=== PATIENT | female | born 1960 | race Caucasian/White ===

== ENCOUNTER 2018-04-06 17:09 | Emergency (ER) | payer MEDICAID ==
--- NOTE | 2018-04-06 19:32 | ED Physician Chart ---
ED Chief Complaint/HPI - Patient Information Date Seen:: 04/06/18 Time Seen:: 19:15 Chief Complaint:: lt ear pain History of Present Illness:: 58 yr old female with lt ear pain for 2 days no fever no drainage just blood old question scratch lt ear Allergies:: Allergies Allergy/AdvReac Type Severity Reaction Status Date / Time No Known Allergies Allergy Verified 04/06/18 17:36 Vitals:: Vital Signs - 8 hr 04/06/18 04/06/18 17:30 18:33 Temp 98 F HR 82 82 RR 16 16 BP 137/89 137/89 O2 Sat % 99 99 ED Review of Systems - Review of Systems General/Constitutional: No fever, No chills, No weight loss, No weakness, No diaphoresis, No edema, No loss of appetite Skin: No skin lesions, No rash, No bruising Head: No headache, No light-headedness Eyes: No loss of vision, No pain, No diplopia ENT: Earache, No nasal drainage, No sore throat, No tinnitus Neck: No neck pain, No swelling, No thyromegaly, No stiffness, No mass noted Cardio Vascular: No chest pain, No palpitations, No PND, No orthopnea, No edema Pulmonary: No SOB, No cough, No sputum, No wheezing GI: No nausea, No vomiting, No diarrhea, No pain, No melena, No hematochezia, No constipation, No hematemesis G/U: No dysuria, No frequency, No hematuria Musculoskeletal: No bone or joint pain, No back pain, No muscle pain Endocrine: No polyuria, No polydipsia Psychiatric: No prior psych history, No depression, No anxiety, No suicidal ideation Hematopoietic: No bruising, No lymphadenopathy Allergic/Immuno: No urticaria, No angioedema Neurological: No syncope, No focal symptoms, No weakness, No paresthesia, No headache, No seizure, No dizziness, No confusion, No vertigo ED Past Medical History - Past Medical History Past Medical History: HTN Family Medical History - Family Member Father History Unknown: Yes ED Physical Exam - Physical Examination General/Constitutional: Awake, Well-developed, well-nourished, Alert, No distress, GCS 15, Non-toxic appearing, Ambulatory ENMT: TM canals nl (dry blood lt ear canal) ED Assessment - Assessment General Assessment: lt ear canal dry blood suggests scratch lt ear canal ED Septic Shock - . Is Septic Shock (SBP<90, OR Lactate>4 mmol\L) present?: No - <6hrs of presentation: Vital Signs: Vital Signs - 8 hr 04/06/18 04/06/18 17:30 18:33 Temp 98 F HR 82 82 RR 16 16 BP 137/89 137/89 O2 Sat % 99 99 ED Reassessment (Disposition) - Reassessment Reassessment Condition:: Unchanged - Aftercare/Follow up Instructions Aftercare/Follow-Up Instructions:: Counseled pt regarding lab results/diagnosis & need follow up, Refer to Discharge Instructions - Patient Disposition Discharge/Transfer:: Home
== END 2018-04-06 19:40 | disposition home or self-care (01) ==
LOC: ER 17:09
DX: H92.02 Otalgia, left ear (principal); I10 Essential (primary) hypertension
CPT/HCPCS: Z7502

== ENCOUNTER 2018-10-22 09:09 | Emergency (ER) | payer MEDICAID ==
--- NOTE | 2018-10-22 09:46 | ED Physician Chart ---
ED Chief Complaint/HPI - Patient Information Date Seen:: 10/22/18 Time Seen:: 09:20 Chief Complaint:: Red Eyes History of Present Illness:: onset x 2 days of bilateral, itching red eyes with scant discharge; pt denies trauma, LOC, ALOC, AMS, eye pain, visual loss, decreased eye vision, H/As, E/As , S/T, neck pain, cough, C/P, SOB, Abd. Pain, A/N/V/D/C, fever, chills, or urinary s/s; pt is 5 years post-menopausal; pt's last tetanus shot: < 5 years; UTD; Allergies:: Allergies Allergy/AdvReac Type Severity Reaction Status Date / Time No Known Allergies Allergy Verified 04/06/18 17:36 Vitals:: Vital Signs - 8 hr 10/22/18 10/22/18 09:21 09:36 Temp 97.8 F 97.8 F HR 109 109 RR 23 23 BP 157/87 157/87 O2 Sat % 98 98 Historian:: Patient Review:: Nurse's Note Reviewed ED Review of Systems - Review of Systems General/Constitutional: No fever, No chills, No weight loss, No weakness, No diaphoresis, No edema, No loss of appetite Skin: No skin lesions, No rash, No bruising Head: No headache, No light-headedness Eyes: No loss of vision, No pain, No diplopia, Other (eye itching; red eyes) ENT: No earache, No nasal drainage, No sore throat, No tinnitus Neck: No neck pain, No swelling, No thyromegaly, No stiffness, No mass noted Cardio Vascular: No chest pain, No palpitations, No PND, No orthopnea, No edema Pulmonary: No SOB, No cough, No sputum, No wheezing GI: No nausea, No vomiting, No diarrhea, No pain, No melena, No hematochezia, No constipation, No hematemesis G/U: No dysuria, No frequency, No hematuria, No nacturia 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: No vaginal discharge, No abnormal vaginal bleed, No contraction Musculoskeletal: No bone or joint pain, No back pain, No muscle pain Endocrine: No polyuria, No polydipsia Psychiatric: No prior psych history, No depression, No anxiety, No suicidal ideation, No homicidal ideation, No auditory hallucination, No visual hallucination Hematopoietic: No bruising, No lymphadenopathy Allergic/Immuno: No urticaria, No angioedema Neurological: No syncope, No focal symptoms, No weakness, No paresthesia, No headache, No seizure, No dizziness, No confusion, No vertigo ED Past Medical History - Past Medical History Obtainable: Yes Past Medical History: HTN Family History: HTN Social History: Non Smoker, No Alcohol, No Drug Use, Surgical History: None Psychiatricy History: None Medication: Reviewed Family Medical History - Family Member Father History Unknown: Yes ED Physical Exam - Physical Examination General/Constitutional: Awake, Well-developed, well-nourished, Alert, No distress, GCS 15, Non-toxic appearing, Ambulatory Head: Atraumatic Eyes: Lids, conjuctiva normal, PERRL, EOMI Other Eyes comments:: Eye Exam: Va: 20/40 OD; 20/50 OS; Corneas: clear; no FBs; no abrasions; Bilateral Conjunctival Injection OU; no FBs; no discharge; PERRLA; IOP: 16 OU; Fundi: benign; EOMs: WNL; LLL: WNL; no valentina-orbital cellulitis; no hyphemas; no eyelid FBs Skin: Nl inspection, No rash, No skin lesions, No ecchymosis, Well hydrated, No lymphadenopathy ENMT: External ears, nose nl, TM canals nl, Nasal exam nl, Lips, teeth, gums nl , Oropharynx nl, Tonsils nl Neck: Nontender, Full ROM w/o pain, No JVD, No nuchal rigidity, No bruit, No mass, No stridor Other Neck comments:: supple; no meningeal signs; no cervical tenderness; no bruits Respiratory: Nl effort/Exclusion, Clear to Auscultation, No Wheeze/Rhonchi/Rales Cardio Vascular: RRR, No murmur, gallop, rubs, NL S1 S2, Carotid/Femoral/Distal pulses equal bilaterally GI: No tenderness/rebounding/guarding, No organomegaly, No hernia, Normal BS's, Nondistended, No mass/bruits, No McBurney tenderness Other GI comments:: no pulsatile masses : No CVA tenderness Extremities: No tenderness or effusion, Full ROM, normal strength in all extremities, No edema, Normal digits & nails Neuro/Psych: Alert/oriented, DTR's symmetric, Normal sensory exam, Normal motor strength, Judgement/insight normal, Mood normal, Normal gait, No focal deficits Other Neuro/Psych comments:: no focal signs Misc: Normal back, No paraspinal tenderness ED Septic Shock - . Is Septic Shock (SBP<90, OR Lactate>4 mmol\L) present?: No - <6hrs of presentation: Vital Signs: Vital Signs - 8 hr 10/22/18 10/22/18 09:21 09:36 Temp 97.8 F 97.8 F HR 109 109 RR 23 23 BP 157/87 157/87 O2 Sat % 98 98 ED Reassessment (Disposition) - Reassessment Reassessment:: pt is comfortable and asymptomatic upon discharge Reassessment Condition:: Improved - Diagnosis Diagnosis:: Dx: Red Eyes; Itching Eyes; Conjunctivitis - Aftercare/Follow up Instructions Aftercare/Follow-Up Instructions:: Counseled pt regarding lab results/diagnosis & need follow up, Refer to Discharge Instructions, Counseled pt & family regarding lab results/diagnosis & need follow up Medication Prescribed:: Rx: Tobramycin Ophthalmic Eye Drops: one drop OU qid x 7 days; Naphcon A Ophthalmic Eye Drops: one drop OU qid prn itching red eyes; Eye Care Instructions - Patient Disposition Discharge/Transfer:: Home Condition at Disposition:: Stable, Improved (RTER prn if existing s/s reoccur and/or get worse and/or any other new s/s occur; ACIs given for all above Dx; Refer to Promotion Producer/Manager Developmental [facility]; F/U with PMD in one day or prn; RTER prn if concerned)
== END 2018-10-22 09:49 | disposition home or self-care (01) ==
LOC: ER 09:09
DX: H10.9 Unspecified conjunctivitis (principal); I10 Essential (primary) hypertension
CPT/HCPCS: Z7502